=== PATIENT | female | born 1940 | race Caucasian/White ===

== ENCOUNTER 2016-06-03 13:09 | Emergency (ER) | payer MEDICARE, BC ==
[2016-06-03 13:23] VITALS: RESP 20; TEMP 99.4
[2016-06-03] MEDS ORDERED: KETOROLAC TROMETHAMINE 30 MG/ML SOL IM ONE (13:36)
[2016-06-03] MEDS ORDERED: HYDROMORPHONE HCL 2 MG/ML SOL IM ONE (13:37)
[2016-06-03] MEDS ORDERED: HYDROMORPHONE HCL 2 MG/ML SOL ONE (13:40)
[2016-06-03] MEDS ORDERED: KETOROLAC TROMETHAMINE 30 MG/ML SOL ONE (13:41)
[2016-06-03] MEDS ORDERED: POTASSIUM CHLORIDE 10 MEQ TER ONE (14:09)
[2016-06-03 16:07] VITALS: BP 128/59; PULSE 70; O2SAT 93
== END 2016-06-03 15:36 | disposition home or self-care (01) | DRG 552 ==
LOC: ED 13:09
DX: M54.6 Pain in thoracic spine (principal)
CPT/HCPCS: 72070; 96372; 99283; 99284; J1170; J1885

== ENCOUNTER 2016-06-19 07:44 | Day surgery (SDC) | payer MEDICARE, BC ==
[2016-06-19 09:55] VITALS: PULSE 82; RESP 20; TEMP 97.3
[2016-06-19 09:57] VITALS: BP 131/66; O2SAT 96
== END 2016-06-19 10:10 | disposition home or self-care (01) | DRG 951 ==
LOC: SURG 07:44
PROVIDERS: ATTEND Surgery
DX: Z12.11 Encounter for screening for malignant neoplasm of colon (principal); K57.30 Diverticulosis of large intestine without perforation or abscess without bleeding; Z80.0 Family history of malignant neoplasm of digestive organs
CPT/HCPCS: J2001; J2704

== ENCOUNTER 2018-08-25 10:45 | Day surgery (SDC) | payer MEDICARE, BC ==
[2018-08-25] MEDS: PHENYLEPHRINE HCL 10% OPHTHAL SOL ONE ×3 (11:11→11:17)
[2018-08-25] MEDS ORDERED: KETOROLAC/HOME 0.5% SOL LEFTEYE ONE ×3 (11:12→11:19)
[2018-08-25] MEDS ORDERED: MOXIFLOXACIN-HOME SOL LEFTEYE ONE ×2 (11:12→11:15)
[2018-08-25] MEDS: TROPICAMIDE 1% OPHTH SOL ONE ×3 (11:12→11:18)
[2018-08-25] MEDS: CYCLOPENTOLATE 1% SOL ONE ×3 (11:12→11:17)
[2018-08-25] MEDS: TETRACAINE HCL 0.5 % 1 DROP SOL ONE ×2 (11:19→12:32)
[2018-08-25] MEDS ORDERED: FENTANYL 100MCG/2ML SOL ONE (12:02)
[2018-08-25] MEDS ORDERED: MIDAZOLAM 2 MG/2 ML SOL ONE (12:02)
[2018-08-25] MEDS ORDERED: POVIDONE IODINE 5% SOL ONE (12:26)
[2018-08-25] MEDS ORDERED: BSS W/ 0.5 MG P.F. EPI 1 BOTTLE ONE (12:27)
[2018-08-25] MEDS: LIDOCAINE HCL 2% MPF 10 ML SOL ONE ×2 (12:35→12:40)
[2018-08-25] MEDS ORDERED: ACETAZOLAMIDE 250 MG PO ONE (12:54)
[2018-08-25 13:02] VITALS: RESP 16; TEMP 97.4
[2018-08-25 13:13] VITALS: BP 163/72; PULSE 60; O2SAT 95
== END 2018-08-25 13:30 | disposition home or self-care (01) | DRG 125 ==
LOC: SURG 10:45
PROVIDERS: ATTEND Ophthalmology
DX: H25.89 Other age-related cataract (principal)
CPT/HCPCS: J2250; J3010; A9270-GY

== ENCOUNTER 2018-09-08 10:46 | Day surgery (SDC) | payer MEDICARE, BC ==
[2018-09-08 11:17] VITALS: RESP 16
[2018-09-08] MEDS: TROPICAMIDE 1% OPHTH SOL ONE ×3 (11:18→11:24)
[2018-09-08] MEDS: CYCLOPENTOLATE 1% SOL ONE ×3 (11:18→11:24)
[2018-09-08] MEDS: PHENYLEPHRINE HCL 10% OPHTHAL SOL ONE ×3 (11:18→11:24)
[2018-09-08] MEDS ORDERED: KETOROLAC/HOME 0.5% SOL RIGHTEYE ONE ×3 (11:19→11:24)
[2018-09-08] MEDS ORDERED: MOXIFLOXACIN-HOME SOL RIGHTEYE ONE ×2 (11:19→11:22)
[2018-09-08] MEDS: TETRACAINE HCL 0.5 % 1 DROP SOL ONE ×2 (11:24→12:36)
[2018-09-08] MEDS ORDERED: MIDAZOLAM 2 MG/2 ML SOL ONE (12:13)
[2018-09-08] MEDS ORDERED: FENTANYL 100MCG/2ML SOL ONE (12:13)
[2018-09-08] MEDS ORDERED: LIDOCAINE HCL 2% MPF 10 ML SOL ONE (12:30)
[2018-09-08] MEDS ORDERED: BSS W/ 0.5 MG P.F. EPI 1 BOTTLE ONE (12:30)
[2018-09-08] MEDS ORDERED: POVIDONE IODINE 5% SOL ONE (12:30)
[2018-09-08 13:08] VITALS: BP 149/69; PULSE 58; TEMP 97.8; O2SAT 94
[2018-09-08] MEDS ORDERED: ACETAZOLAMIDE 250 MG PO ONE (13:25)
== END 2018-09-08 13:31 | disposition home or self-care (01) | DRG 125 ==
LOC: SURG 10:46
PROVIDERS: ATTEND Ophthalmology
DX: H25.89 Other age-related cataract (principal)
CPT/HCPCS: J2250; J3010; A9270-GY